=== PATIENT | male | born 1985 | race Caucasian/White ===

== ENCOUNTER 2025-08-15 17:48 | Emergency (ER) | payer OTHER, SELFPAY ==
--- OUTSIDE RECORDS SUMMARY | 2025-05-16 04:30 | XMS_ITS ---
Author Organization [facility] [address] Address [address] [place] [address] Care Team Providers Care First Aid Director Name Role Phone Nayla Calvillo Unavailable [phone] Medications Medication SIG (Take, Route, Frequency, Duration) Notes Start Date End Date Status Ondansetron HCl 4 MG Tablet 1 tablet Ora lly every 8 hours; Duration: 30 days 04/12/2025 Active Encounters Encounter Location Date Provider Diagnosis [facility] [address] [facility] [address] [place] [address] 05/16/2025 Nayla Calvillo Plan Of Treatment No Information History and Physical Notes * HPI (History of Present Illness) Category Sub-Category Detail Notes Category Not es Constitutional Ross is a 40-year-old male with past medical history of hyperemesis cannabinoid syndrome who presents for routine physical exam. Medications, medical history, surgical history, allergies, hospitalizations, and changes in family history since time of last visit reviewed. Labs obtained () reveal. Labs otherwise within normal limits Specialists-- Dentist: Declines Ophthalmology: Declines Other concerns addressed today: Immunizations-- Influenza: Declines COVID: 2021 Tetanus: 04/12/2025 Progress Notes * ROSS BRANDONDOB:[birth year] (40 yo M)Acc No.[id number]:05/16/2025 CPE Patient: Wally ROSS BRIONES Provider: Corey Calvillo PA-C :1985 A ge:40 Y S ex:Male Date:05/16/2025 Address:[address] [place], [place] [id number] Subjective: * Chief Complaints: * HPI: C onstitutional: Ross is a 40-year-old male with past medical history of hyperemesis cannabinoid syndrome who presents for routine physical exam. Medications, medical history, surgical history, allergies, hospitalizations, and changes in family history since time of last visit reviewed. Labs obtained () reveal. Labs otherwise within normal limits Specialists-- Dentist: Declines Ophthalmology: Declines Other concerns addressed today: Immunizations-- Influenza: Declines COVID: 2021 Tetanus: 04/12/2025. * Medications: T akingOndansetron HCl 4 MG Tablet 1 tablet Orally every 8 hours Taking Ondansetron HCl 4 MG Tablet 1 tablet Orally every 8 hours Care Plan Details* * Electronic signature of Gwendolyn Calvillo PA-C on 08/15/2025 at 10:13 PM EST Sign off status: Pending * Provider: Corey Calvillo PA-C Date: 0 05/16/2025 Generated for Yessica fiore/Rey/Lorie on: 1 10/15/2024 10:13 PM EST
--- OUTSIDE RECORDS SUMMARY | 2025-06-07 04:15 | XMS_ITS ---
Author Organization [facility] Address [address] [place] [address] Care Team Providers Care Web Assistant Name Role Phone Karli Nayla Unavailable [phone] Medications Medication SIG (Take, Route, Frequency, Duration) Notes Start Date End Date Status Ondansetron HCl 4 MG Tablet 1 tablet Orally every 8 hours; Duration: 30 days 04/12/2025 Not-Taking Encounters Encounter Location Date Provider Diagnosis [facility] [address] [address] 06/07/2025 Nayla Calvillo Plan Of Treatment No Information History and Physical Notes * HPI (History of Present Illness) Category Sub-Category Detail Notes Category Not es Constitutional Ross is a 40-year-old male with past medical history of tobacco use disorder and hyperemesis cannabinoid syndrome who presents for routine follow-up to review labs. Physical Examination Category Sub-Category Detail Notes Section Note s General: Age appropriate, well appearing, no acute distress, speaking in full sentences without respiratory compromise. Well groomed, well developed. Alert, Interactive. Skin: Warm, dry and intact. No lesions/rashes/erythema. HEENT: Normocephalic/atraumatic. Neck/Thyroid: Supple, with no lymphadenopathy. Full ROM. Lung: Clear to auscultation bilaterally, no wheezes, rales or rhonchi. No barrel chest. Equal chest rise and fall bilaterally. Cardiac: RRR S1 and S2 appreciated. No murmurs/rubs or gallops. Abdomen: Soft, nondistended, nontender to palpation in all 4 quadrants. Extremities: Bilateral lower extremities with no edema or rubor. No evidence of varicose veins. Equal tone bilaterally. Neuro: CN II-XI grossly intact. Steady gait with ambulation observed. Psych: Stable mood and affect Progress Notes * ROSS BRANDON JDOB:[birth year] (40 yo M)Acc No.[id number]:06/07/2025 Progress Notes Patient: ROSS PHILLIPS Provider: Corey Calvillo PA-C :1985 A ge:40 Y S ex:Male Date:06/07/2025 Address:[address] [place], [place] [id number] Subjective: * Chief Complaints: * HPI: C onstitutional: Ross is a 40-year-old male with past medical history of tobacco use disorder and hyperemesis cannabinoid syndrome who presents for routine follow-up to review labs. * ROS: R OS: Constitutional: Patient denies any excessive fatigue with exercise, no weight loss, no fever, no night sweats, no changes in sleep. Eyes: No eye discharge, no itching, no redness, no vision changes. Advised the significance of regular eye exams to screen for glaucoma and other eye problems. Ear nose throat: No ear pain, No sore throat, no postnasal drip, no runny nose, no sneezing, no hearing changes Cardiovascular: No chest pain, no dyspnea on exertion, no PND, no orthopnea, no irregular pulse, no palpitations, no claudication, no diaphoresis, no claudication. Respiratory: No chronic cough, no hemoptysis, no sputum, no wheezing, no SOB, no pleuritic pain. GI: no nausea, no vomiting, No diarrhea, no constipation, no blood in the stools, no pain associated with eating, no indigestion, no difficulty swallowing, no appetite change. Genitourinary: No painful urination, no hesitancy, no blood in the urine, no incontinence, no frequency, no urgency, no abnormal discharge. Musculoskeletal: No back pain, no joint pain, no limitations to walking and running, no joint deformity, no joint stiffness, no muscle weakness Integumentary: No new skin rash. No new changes in skin moles, no pruritis, no color change. Neurological: No history of seizures, no memory loss, no language dysfunction, no inability to concentrate, no localized weakness, no sensation loss, no confusion, no dizziness, no tremor, no numbness, no tingling. Psychiatric: no anxiety, no depression, no suicidal thoughts, feels safe at home. Endocrine: No polyuria, no polyphagia, no polydipsia. No heat/cold intolerance, no excesss thirst. Hematological: No easy bruising or bleeding, no lymph node swelling. * Medications: N ot-TakingOndansetron HCl 4 MG Tablet 1 tablet Orally every 8 hours Not-Taking Ondansetron HCl 4 MG Tablet 1 tablet Orally every 8 hours Objective: * Physical Examination: G eneral: Age appropriate, well appearing, no acute distress, speaking in full sentences without respiratory compromise. Well groomed, well developed. Alert, Interactive. Skin: Warm, dry and intact. No lesions/rashes/erythema. HEENT: Normocephalic/atraumatic. Neck/Thyroid: Supple, with no lymphadenopathy. Full ROM. Lung: Clear to auscultation bilaterally, no wheezes, rales or rhonchi. No barrel chest. Equal chest rise and fall bilaterally. Cardiac: RRR S1 and S2 appreciated. No murmurs/rubs or gallops. Abdomen: Soft, nondistended, nontender to palpation in all 4 quadrants. Extremities: Bilateral lower extremities with no edema or rubor. No evidence of varicose veins. Equal tone bilaterally. Neuro: CN II-XI grossly intact. Steady gait with ambulation observed. Psych: Stable mood and affect. Plan: * Procedure Codes: 9 9199 NO SHOW OFFICE VISIT Billing Information: * Procedure Codes: 59733 NO SHOW OFFICE VISIT. Care Plan Details* * Electronic signature of Gwendolyn Calvillo PA-C on 08/15/2025 at 10:13 PM EST Sign off status: Pending * Provider: Corey Calvillo PA-C Date: 0 06/07/2025 Generated for Yessica fiore/Rey/Joshitting on: 1 10/15/2024 10:13 PM EST
--- OUTSIDE RECORDS SUMMARY | 2025-08-10 20:55 | XMS_ITS | Continuity of Care Document ---
Author Organization [facility] al Address [address] [place] [address]- Care Team Providers Care Hydraulic Chair Assembler Name Role Phone Not on Staff, PCP Primary Care Physician Unavail able Encounter [facility] Date(s): 08/10/25 - 08/10/[address] [address]- Discharge Disposition: A-D/C Home Attending Physician: Tammie Ford DO Admitting Physician: Tammie Ford DO Referring Physician: Not on Staff, Referring MD Encounter Type: Disch ES Allergies, Adverse Reactions, Alerts Substance Criticality Severity Reaction Reaction Severity Status aspirin Active Immunizations Given and Recorded Vaccine Date Status Refusal Reason influenza virus vaccine, inactivated 01/24/16 Give n Medications famotidine 20 mg oral tablet 20 mg, 1, tablet, By Mouth, 2 times a day, # 60 tablet, Refills 0, Tot. Refills 0, Maintenance, 11/21/24 5:38:00 PM EST, Route to Pharmacy Electronically, [facility]/pharmacy #[id number], Partial fill upon patientrequest if the prescription is for a schedule II opioid drug., 173, cm, 11/21/24 16:09:00 EST, Height, 64.7, kg, 11/21/24 12:53:00 EST, Dry Weight Start Date: 11/21/24 Status: Ordered Medication Dispense Status: Completed Quantity: 60.0 Unit: tablet Total Allowed Fills: 1 Fills Dispensed: 0 omeprazole 20 mg oral delayed release tablet 1 tablet = 20 mg, By Mouth, Daily, # 30 tablet, 0 Refills, Maintenance, 01/24/16 2:57:29 PM EDT, EC Tablet, [facility]/pharmacy #[id number] Start Date: 01/24/16 Status: Ordered Medication Dispense Status: Completed Quantity: 30.0 Unit: tablet Total Allowed Fills: 1 Fills Dispensed: 0 Potassium Chloride (Vvk-Spea-Sim M20) 20 mEq oral tablet, extended release 1 tablet = 20 mEq, By Mouth, 2 times a day, # 10 tablet, 0 Refills, Maintenance, 03/14/25 1:08:00 PMEDT, ER Tablet, [facility]/pharmacy #[id number], Partial fill upon patient request if the prescription is for a schedule II opioid drug., 172, cm, 03/14/25 10:16:00 EDT, Height, 63, kg, 03/14/25 10:16:00 EDT, DryWeight Start Date: 03/14/25 Stop Date: 03/19/25 Status: Ordered Medication Dispense Status: Completed Quantity: 10.0 Unit: tablet Total Allowed Fills: 1 Fills Dispensed: 0 prochlorperazine 25 mg rectal suppository 1 supp = 25 mg, Rectally, 2 times a day, PRN for nausea/vomiting, # 12 supp, 0 Refills, Maintenance, 12/01/24 3:46:00 AM EST, Suppository, [id number], Partial fill upon patient request if the prescription is for a schedule II opioid drug., 173, cm, 11/30/24 20:21:00 EST, Height, 62.5, kg, 11/30/24 20:26:00 EST, Dry Weight Start Date: 12/01/24 Status: Ordered Medication Dispense Status: Completed Quantity: 12.0 Unit: supp Total Allowed Fills: 1 Fills Dispensed: 0 promethazine 25 mg rectal suppository 1 supp = 25 mg, Rectally, 2 times a day, # 6 supp, 0 Refills, Maintenance, 08/10/25 8:32:00 PM EST, Suppository, [id number], Partial fill upon patient request if the prescription is for a schedule II opioid drug., 173, cm, 08/10/25 13:55:00 EST, Height, 73, kg, 08/10/25 13:55:00 EST, Dry Weight Start Date: 08/10/25 Stop Date: 08/13/25 Status: Ordered Medication Dispense Status: Completed Quantity: 6.0 Unit: supp Total Allowed Fills: 1 Fills Dispensed: 0 Mental Status Mental Status Assessment Assessment Assessment Component Result Effecti ve Date [place] coma score total 15 08/10/25 Body temperature measurement site Oral 08/10/25 Body weight 73 08/10/25 Heart rate 51 08/10/25 Scale weight (physic al object) Standing scale 08/10/25 Body temperature 98.8 08/10/25 Body height 173 08/10/25 Respiratory rate 18 08/10/25 Dry body weight Measured 73 08/10/25 Oxygen saturation in Arterial blood by Pulse oximetry 98 08/10/25 Systolic blood pressure <content ID='[id number]' >114</content>/<shavon nt ID='[id number]' >60</content> 08/10/25 Gas delivery source Respiratory system Room air 08/10/25 Blood pressure measurement site Arm, left 08/10/25 Mental Status Assessment Assessment Assessment Component Result Effecti ve Date Laz coma score total 15 08/10/25 Vital Signs Most recent to oldest [Reference Range]: 1 2 3 Height 173 cm (08/10/25 8:45 PM) 173 cm (08/10/25 1:50 PM) Weight 73 kg (08/10/25 8:45 PM) 73 kg (08/10/25 1:50 PM) Oxygen Saturation [94-100 %] 98 % (08/10/25 8:45 PM) 98 % (08/10/25 1:50 PM) 100 % (08/10/25 1:49 PM) Pulse Rate [55-90 bpm] 51 bpm *L* (08/10/25 8:45 PM) 51 bpm *L* (08/10/25 1:50 PM) 54 bpm *L* (08/10/25 1:49 PM) Body Mass Index [18.5-24.99 kg/m2] 24.39 kg/m2 (08/10/25 8:45 PM) Blood Pressure [90-138/55-84 mm Hg] 103/46mm Hg (08/10/25 8:45 PM) 114/60mm Hg (08/10/25 1:50 PM) Respiratory Rate [16-30 br/min] 18 br/min (08/10/25 8:45 PM) 18 br/min (08/10/25 1:50 PM) 20 br/min (08/10/25 1:49 PM) Temperature [96.8-100.4 DegF] 99.5 DegF (08/10/25 8:45 PM) 98.8 DegF (08/10/25 1:50 PM) Mode of Delivery (Oxygen) Room air (08/10/25 8:45 PM) Room air (08/10/25 1:50 PM) Blood pressure sites Arm, left (08/10/25 8:45 PM) Arm, left (08/10/25 1:50 PM) Temperature Route Oral (08/10/25 8:45 PM) Oral (08/10/25 1:50 PM) Dry Weight 73 kg (08/10/25 8:45 PM) 73 kg (08/10/25 1:50 PM) Weight Obtained Via Standing scale (08/10/25 1:50 PM) Social History Social History Type Response Smoking Status 5-9 cigarettes (betw een 1/4 to 1/2 pack)/day in last 30 days entered on: 11/21/24 Sex Sex Representation Male (finding) Status N/A Note * Michelle Goel: PERFORM Event Display: Patient Education Leaflets Authored Date: Vomiting (adult) ?? [id number] Vomiting (adult) Vomiting is when stomach contents come out of the mouth. Nausea is the unpleasant feeling of the need to vomit. It may occur with dizziness, discomfort in the stomach (sour stomach), and no desire toeat. Vomiting is a common symptom that may be due to different causes. These include gastroenteritis (stomach flu), food poisoning, and gastritis. Or it may be a side effect of certain medicines, such as opioids. Other more serious causes of vomiting may be hard to diagnose early in the illness. That's why it's important to watch for the warning signs listed below. Some people may also vomit due to strong emotions like fear or from motion sickness. The main danger from repeated vomiting is dehydration. This is because of the loss of water and minerals from the body. When this occurs, your body fluids must be replaced. Other problems that can happen from vomiting include: ??? Electrolyte imbalance ??? Tears in the esophagus ??? Breathing in of stomach contents (aspiration) ??? Weight loss ??? Not getting enough nutrients Home care ??? If symptoms are severe, rest at home for the next 24 hours. ??? Because your symptoms may be from an infection, wash your hands often and well. Use soap and clean, running water or alcohol-based sustainable landscape architect to keep from spreading the infection to others. ??? Wash your hands for at least 20 seconds. Scrub all surfaces of your hands, including between your fingers and under your fingernails each time you wash. Humming the Happy Birthday song twice while you wash is an easy way to make sure you've washed for 20 seconds. ??? Wash your hands after using the toilet, before and after preparing food, and before eating. Also wash them after changing a diaper, cleaning a wound, caring for a sick person, blowing your nose, coughing, or sneezing. You should also wash your hands after touching pet food or treats and touching an animal or animal waste. ??? You may use acetaminophen??or NSAID medicines such as ibuprofen or naproxen to control fever, unless another medicine was prescribed. Talk with your provider before using these medicines if you have chronic liver or kidney disease or ever hada stomach ulcer or digestive bleeding. Never give aspirin to anyone younger than 18 who is ill witha fever. It may cause severe liver damage. Don't use NSAID medicines if you are already taking one for another condition such as arthritis or take aspirin for heart disease or after a stroke. ??? Don't use tobacco or drink alcohol. These may make your symptoms worse. If you have trouble stopping either substance, ask your provider for treatment resources. ??? If medicines for vomiting were prescribed, take as directed. Tell your provider if they don't work within the expected time period. Once vomiting stops, then follow these guidelines: During the first 12 to 24 hours, you can have: ??? Fruit juices, like apple and grape, clear fruit drinks, and electrolyte replacement drinks ??? Beverages such as water, soft drinks without caffeine, mineral water (plain or flavored), and decaffeinated tea and coffee ??? Clear broth and bouillon ??? Desserts like plain gelatin, ice pops, and fruit juice bars During the next 24 hours, you may add the following to the above: ??? Hot cereal, plain toast, bread, rolls, and crackers ??? Plain noodles, rice, mashed potatoes, and chicken noodle or rice soup ??? Unsweetened canned fruit such as applesauce or bananas (no pineapple or citrus) ??? Yogurt (6 to 8 ounces) ??? Limited amounts of caffeine and chocolate ??? No spices or seasonings except salt During the next 24 hours, you can gradually go back to your normal diet, as you feel better and your symptoms lessen. ?? Follow-up care Follow up with your healthcare provider as advised. ?? When to seek medical advice Call your healthcare provider right away if any of these occur: ??? Constant pain in the lower right side of your belly or increasing general belly pain ??? Continued vomiting (unable to keep liquidsdown) for 24 hours ??? Vomiting blood or what looks like coffee grounds ??? Swollen belly ??? Frequent diarrhea (more than 5 times a day), or blood (red or black color) or mucus in diarrhea ??? Peeing less than usual or extreme thirst ??? Weakness, dizziness, or fainting ??? Unusually drowsy or confused ??? Fever of 100.4??F (38??C) or higher, or as directed by your provider ??? Yellow color of the eyes or skin ??? Other symptoms that get worse or new symptoms ?? Last Reviewed Date: 2024 00:00:00 ?? 8018-0707 [employer]. All rights reserved. This information is not intended as a substitute for professional medical care. Always follow your healthcare professional's instructions. ?? * Michelle Goel: PERFORM Event Display: Patient Education Leaflets Authored Date: [id number] Marijuana Use Disorder ?? [id number] Marijuana Use Disorder Marijuana, or cannabis, is the third most commonly used psychoactive substance in the world. Its use is surpassed only by alcohol and tobacco (nicotine). Recently, it's increasingly legal for recreational and medicinal use in many states. It's called by various names such as pot, weed, blunts, grass, reefer, ganja, hash, or hashish. It's usually smoked, but it can be mixed with foods or brewed asa tea. Recently a practice known as dabbing or smoking wax has become popular. This means smoking highly concentrated extracts of the marijuana plant. The result is more side effects. Sometimes, marijuana can be illegally sold with PCP (haresh dust) or amphetamine mixed in it. These illegal drugs can cause other harmful side effects. If you're using marijuana with other illegal or legal drugs,the type and severity of side effects will vary. Marijuana (cannabis) use is considered a disorder when the person loses control over its use. The person continues to use it even when it causes serious physical, emotional, thinking, and social problems. It may be identified as mild, moderate, or severe, depending on the number of symptoms present. Marijuana can cause: ??? Changes in mood, such as feeling stimulated, happy, drowsy, depressed, or paranoid. ??? Visions(hallucinations). ??? Increased heart rate and blood pressure. ??? Red eyes. ??? Increased appetite. ??? Changes in awareness of time, trouble concentrating, or memory problems. ??? Lung damage. Thisis similar to cigarettes with chronic cough, wheezing, frequent colds, and bronchitis. ??? Rarely, collapse of a lung. ??? Decreased sperm count. ??? Dizziness, vertigo, and possibly slurred speech. ??? Vomiting. Even though marijuana is often used to treat nausea and vomiting, some long-term dailyusers have the opposite effect. They can't stop vomiting for long periods of time. You can become psychologically dependent on marijuana. That means the craving to use the drug is emotional or psychological rather than from physical withdrawal. Is marijuana running your life? Signs of marijuana use disorder include: ??? Relying on marijuana to feel good, forget problems, deal with stress, or relax. ??? Wanting to be alone most of the time or only with others who use drugs. ??? Losing interest in things that used to be important. ??? Changes in school or job performance or attendance. ??? Spending a lot of time thinking about how to get marijuana. ??? Stealing or selling your things so you can buy marijuana. ??? Unable to stop using even though you may want to quit. ??? Increasing anxiety, anger,??or depression. ??? Sleeping too much, or changes in eating habits (leading to weight loss or gain). ??? Needing to use more to get the same effect. ?? Home care These suggestions can help you manage marijuana use disorder: ??? When you become addicted to any drug, quitting is hard to do. Most people find they can't quit without help. So don???t try to do this alone. Talk to someone you trust who can support you. Seek professional help. ??? Stay away from people and places where drugs are used. That only increases the temptation to use. ?? Follow-up care Follow up with your health care provider as advised. For more information or a referral to a treatment center in your area: ??? Substance Abuse and Mental Health Services Administration (SAMHSA) Treatment Locations at https://www.[facility].gov/find-treatment ??? National [place] on Alcoholism and Drug Dependence at http://ncaddms.org/ or call 172-026-1371 ??? Marijuana Anonymous at [employer].org or call 397-748-2542 ?? When to get medical care ??Contact your health care provider right away if: ??? You believe you're addicted to marijuana andwant to stop using it. ??? You feel extreme depression, fear, anxiety, or anger toward yourself orothers. ??? You feel out of control. ??? You feel that you may try to harm yourself or another. ???Call 911 if you have chest pain or shortness of breath. ?? Last Reviewed Date: 2024 00:00:00 ?? 7158-1930 [employer]. All rights reserved. This information is not intended as a substitute for professional medical care. Always follow your healthcare professional's instructions. ?? Patient Care team information Care Team Personnel Name: Not on Staff, PCP Position: S Physician (General Medicine) Member Role: PCP Care Team Related Persons Name: TETO GOTTLIEB Insurance Providers Guarantor name: [facility] [employer] [facility] Information #: 1 [facility] Payer Identifier: BAKARI Member Number: [id number] Group Number: [id number] Subscriber Identifier: [id number] Relationship to Subscriber: self Coverage Type: Commercial Managed Care - PPO Coverage Verification Date: NA Telecom: NA Address: NA
--- OUTSIDE RECORDS SUMMARY | 2025-08-12 02:47 | XMS_ITS | Continuity of Care Document ---
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 Name Role Phone Not on Staff, PCP Primary Care Physician Unavail able Encounter [facility] Date(s): 08/11/25 - 08/12/[address] [address]- Discharge Disposition: A-D/C Home Attending Physician: Jono Torres MD Admitting Physician: Jono Torres MD Referring Physician: Not on Staff, Referring MD Encounter Type: Disch ES Allergies, Adverse Reactions, Alerts Substance Criticality Severity Reaction Reaction Severity Status aspirin Active Immunizations Given and Recorded Vaccine Date Status Refusal Reason influenza virus vaccine, inactivated 01/24/16 Give n Medications Carafate 1 gm oral tablet 1 Gm, 1, tablet, By Mouth, 2 times a day, # 30 tablet, Refills 0, Tot. Refills 0, Maintenance, 08/12/25 2:09:00 AM EST, Route to Pharmacy Electronically, [facility]/pharmacy #[id number], Partial fill upon patient request if the prescription is for a schedule II opioid drug., 173, cm, 08/11/25 19:14:00 EST, Height, 66.5, kg, 08/11/25 19:14:00 EST, Dry Weight Start Date: 08/12/25 Status: Ordered Medication Dispense Status: Completed Quantity: 30.0 Unit: tablet Total Allowed Fills: 1 Fills Dispensed: 0 famotidine 20 mg oral tablet 20 mg, 1, tablet, By Mouth, 2 times a day, # 60 tablet, Refills 0, Tot. Refills 0, Maintenance, 11/21/24 5:38:00 PM EST, Route to Pharmacy Electronically, [facility]/pharmacy #[id number], Partial fill upon patientrequest if the prescription is for a schedule II opioid drug., 173, cm, 11/21/24 16:09:00 EST, Height, 64.7, kg, 11/21/24 12:53:00 EST, Dry Weight Start Date: 11/21/24 Status: Ordered Medication Dispense Status: Completed Quantity: 60.0 Unit: tablet Total Allowed Fills: 1 Fills Dispensed: 0 metoclopramide 5 mg oral tablet 1 tablet = 5 mg, By Mouth, 4 times a day, PRN Nausea, # 60 tablet, 0 Refills, Acute 09/12/25 2:01:00AM EST, 08/12/25 2:01:00 AM EST, Tablet, [facility]/pharmacy #[id number], Partial fill upon patient request if the prescription is for a schedule II opioid drug., 173, cm, 08/11/25 19:14:00 EST, Height, 66.5, kg, 08/11/25 19:14:00 EST, Dry Weight Start Date: 08/12/25 Stop Date: 09/12/25 Status: Ordered Medication Dispense Status: Completed Quantity: 60.0 Unit: tablet Total Allowed Fills: 1 Fills Dispensed: 0 omeprazole 20 mg oral delayed release tablet 1 tablet = 20 mg, By Mouth, Daily, # 30 tablet, 0 Refills, Maintenance, 01/24/16 2:57:29 PM EDT, EC Tablet, [facility]/pharmacy #[id number] Start Date: 01/24/16 Status: Ordered Medication Dispense Status: Completed Quantity: 30.0 Unit: tablet Total Allowed Fills: 1 Fills Dispensed: 0 pantoprazole 20 mg oral delayed release tablet 1 tablet = 20 mg, By Mouth, Daily, # 15 tablet, 0 Refills, Maintenance, 08/12/25 2:10:00 AM EST, CR Tablet, 173, cm, 08/11/25 19:14:00 EST, Height, 66.5, kg, 08/11/25 19:14:00 EST, Dry Weight Start Date: 08/12/25 Status: Ordered Medication Dispense Status: Completed Quantity: 15.0 Unit: tablet Total Allowed Fills: 1 Fills Dispensed: 0 Mental Status Mental Status Assessment Assessment Assessment Component Result Effecti ve Date Laz coma score total 15 08/11/25 Mental Status Assessment Assessment Assessment Component Result Effecti ve Date Laz coma score total 15 08/11/25 Body temperature 98.7 08/11/25 Blood pressure measurement site Arm, right 08/11/25 Heart rate 60 08/11/25 Body weight 66.5 08/11/25 Body temperature measurement site Temporal 08/11/25 Body height 173 08/11/25 Systolic blood pressure <content ID='[id number]' >107</content>/<shavon nt ID='[id number]' >92</content> 08/11/25 Oxygen saturation in Arterial blood by Pulse oximetry 98 08/11/25 Dry body weight Measured 66.5 08/11/25 Respiratory rate 18 08/11/25 Scale weight (physic al object) Standing scale 08/11/25 Vital Signs Most recent to oldest [Reference Range]: 1 2 3 Height 173 cm (08/11/25 7:03 PM) Weight 66.5 kg (08/11/25 7:03 PM) Oxygen Saturation [94-100 %] 100 % (08/12/25 2:00 AM) 99 % (08/12/25 1:00 AM) 98 % (08/11/25 7:03 PM) Pulse Rate [55-90 bpm] 53 bpm *L* (08/12/25 2:00 AM) 52 bpm *L* (08/12/25 1:00 AM) 60 bpm (08/11/25 7:03 PM) Blood Pressure [90-138/55-84 mm Hg] 102/62mm Hg (08/12/25 2:00 AM) 106/62mm Hg (08/12/25 1:00 AM) 107/92mm Hg (08/11/25 7:03 PM) Respiratory Rate [16-30 br/min] 18 br/min (08/11/25 7:03 PM) Temperature [96.8-100.4 DegF] 98.7 DegF (08/11/25 7:03 PM) Mode of Delivery (Oxygen) Room air (08/12/25 2:00 AM) Room air (08/12/25 1:00 AM) Room air (08/11/25 7:02 PM) Blood pressure sites Arm, right (08/12/25 2:00 AM) Arm, right (08/12/25 1:00 AM) Arm, right (08/11/25 7:03 PM) Temperature Route Temporal (08/11/25 7:03 PM) Dry Weight 66.5 kg (08/11/25 7:03 PM) Weight Obtained Via Standing scale (08/11/25 7:03 PM) Social History Social History Type Response Smoking Status 5-9 cigarettes (betw een 1/4 to 1/2 pack)/day in last 30 days entered on: 11/21/24 Sex Sex Representation Male (finding) Status N/A Note * Melissa HO, Jono Abdul: PERFORM Event Display: Patient Education Leaflets Authored Date: [id number] Multiple Documents ?? [id number] Vomiting (adult) Vomiting is when stomach contents [...] soap and clean, running water or alcohol-based electric power machine operator to keep from spreading the infection to [...] ?? Last Reviewed Date: 2024 00:00:00 ?? [id number] [employer]. All rights reserved. This information is not intended as a substitute for professional medical care. Always follow your healthcare professional's instructions. ?? * Melissa HO, Jono Abdul: PERFORM Event Display: Patient Education Leaflets Authored Date: [id number] Multiple Documents ?? [id number] Food Poisoning or Viral Gastroenteritis (Adult) You have a stomach illness that is likely either food poisoning or viral gastroenteritis. Food poisoning is an illness that is passed along in food and affects the stomach and intestinal tract. It usually occurs from 1 to 24 hours after eating food that has spoiled. When it happens withina few hours of eating, it's often caused by toxins from bacteria in food that has not been cooked or refrigerated correctly. Never eat food that has been sitting out for more than 2 hours, or 1 hour if the temperature is above 90??F (32??C). Viral gastroenteritis is an??illness from a virus that also affects the stomach and intestinal tract. Many people call it the ???stomach flu,?? but it has nothing to do with influenza. In fact, it can happen from food poisoning, but it can also happen when germs??are passed from mubftn-od-muknvg or contaminated surface (toothbrush, cutting board, toilet) to a person. Either illness can cause symptoms such as: ??? Belly (abdominal) pain and cramping. ??? Nausea. ??? Vomiting. ??? Diarrhea. ??? Fever and chills. ??? Loss of bowel control. The symptoms of food poisoning usually last 1 to 2 days. The symptoms of viral gastroenteritis can sometimes last up to 7 days but usually end sooner. Antibiotics are not effective for viral gastroenteritis. But they may be prescribed for food poisoning that was caused by bacteria or parasites. Other causes of gastroenteritis include bacteria and parasites which are not discussed here. Home care Follow all instructions given by your health care provider. Rest at home for the next 24 hours, or until you feel better. Don't have any caffeine, tobacco, or alcohol. These can make diarrhea, cramping, and pain worse. If taking medicines: ??? Llej-uvi-mzgauzk diarrhea or nausea medicines are generally okay unless you have bleeding, fever, or severe abdominal pain. ??? You may use acetaminophen or nonsteroidal anti-inflammatory drugs (NSAID), such as ibuprofen or naproxen to reduce pain and fever. Don???t use these if you have chronic liver or kidney disease. Don't use NSAIDs on an empty stomach or if you ever had a stomach ulcer or gastrointestinal bleeding. Talk with your provider first. Don't use NSAIDs if you are already taking them for another condition (such as arthritis) or are on daily aspirin therapy (such as for heartdisease or after a stroke). To prevent the spread of illness: ??? Remember that washing with soap and clean, running water is the best way to prevent the spread of infection. Wash your hands before and after caring for a sick person. Dry your hands with a single-use disposable towel. ??? Use a separate bathroom or clean the toilet after each use. ??? Wash your hands or use alcohol-based hand electric power machine operator before eating. ??? Wash your hands or use alcohol- based hand electric power machine operator before and after preparing food. Keep in mind that people with diarrhea or vomiting should not prepare food for others. ??? Wash your hands or use alcohol-based hand electric power machine operator after using cutting boards, counter- tops, and knives (and other utensils) that have been in contact with raw foods. ??? Wash and then peel fruits and vegetables. ??? Keep uncooked meats away from cooked and ckkkm-nv-uuu foods. ??? Use a food thermometer when cooking. Cook poultry to at least 165??F (74??C). Cook ground meat (beef, veal, pork, and phan) to at least 160??F (71??C). Cook fresh beef, veal, phan, and pork to at least 145??F (63??C). ??? Don???t eat raw or undercooked eggs (poached or ct side up), poultry, meat or unpasteurized milk and juices. Food and drinks The main goal while treating vomiting or diarrhea is to prevent dehydration. This is done by takingsmall amounts of liquids often. ??? Keep in mind that liquids are more important than food right now. ??? If you are nauseated, youcan sip liquids often rather than drinking a large amount at once. ??? Don???t force yourself to eat, especially if you are??having cramping, vomiting, or diarrhea. Small, frequent meals are better tolerated than a few large meals. ??? If you eat, stay away from fatty, greasy, spicy, or fried foods. ??? Don???t eat dairy foods or drink milk if you have diarrhea.??These can make??diarrhea worse. The first 24 hours you can try: ??? Oral rehydration solutions. These are available at grocery stores and pharmacies. Sports drinksare not a good choice if you are very dehydrated. They have too much sugar and not enough electrolytes. ??? Soft drinks without caffeine. ??? Leslie garcia. ??? Water (plain or flavored). ??? Decaf tea or coffee. ??? Clear broth, consomm??, or bouillon. ??? Gelatin, ice pops, or frozen fruit juice bars. ??The second 24 hours, if you are feeling better, you can add: ??? Hot cereal, plain toast, bread, rolls, or crackers. ??? Plain noodles, rice, mashed potatoes, chicken noodle soup, or rice soup. ??? Unsweetened canned fruit (no pineapple). ??? Bananas. As you recover: ??? Limit fat intake to less than 15 grams per day. Don???t eat margarine, butter, oils, mayonnaise, sauces, gravies, fried foods, peanut butter, meat, poultry, or fish. ??? Broaden your diet when you feel ready. In general, a low-fat diet may be better tolerated. This includes leanmeat, poultry, and fish. ??? Limit fiber. Initially limit raw or lightly cooked vegetables, fresh fruits except bananas, or bran cereals. Add them back when you feel ready. ??? Limit caffeine and chocolate. ??? Limit dairy. If you tolerated dairy products before your diarrhea, add them back when you feel ready. Some people are lactose intolerant for a while after diarrhea. ??? Choose bland foods.They may be easier to tolerate than highly spiced foods. ??? Resume a normal diet over time, as youfeel better and your symptoms improve. ??? If the symptoms come back, go back to a simple diet or clear liquids. ?? Follow-up care Follow up with your health care provider, or as advised. If a stool sample was taken or cultures were done, call the provider for the results as instructed. ?? Call 911 Call 911 if you have: ??? Trouble breathing. ??? Confusion. ??? Extreme drowsiness or trouble walking. ??? Loss of consciousness. ??? A rapid heart rate. ??? Chest pain. ??? A stiff neck. ??? A seizure. ?? When to call your doctor Contact your health care provider right away if: ??? You have belly pain that lasts or gets worse. ??? You have constant lower right belly pain. ??? You have continued vomiting and inability to keep liquids down. ??? You have diarrhea more than 5 times a day. ??? You have blood in your vomit or stool. ??? You have dark urine or no urine for 8 hours, dry mouth and tongue, tiredness, weakness, or dizziness. ??? You have a new rash. ??? You don???t get better in 2 to 3 days. ??? You have a fever of 100.4??F (38??C) or higher, or as??advised by your provider. ??? You have new symptoms of arthritis. ?? Last Reviewed Date: 2024 00:00:00 ?? [id number] [employer]. All rights reserved. This information is not intended as a substitute for professional medical care. Always follow your healthcare professional's instructions. ?? Patient Care team information Care Team Personnel Name: Not on Staff, PCP Position: [facility] Physician (General Medicine) Member Role: PCP Care Team Related Persons Name: TETO GOTTLIEB Insurance Providers Guarantor name: SHINTO [facility] Information #: 1 Payer: [facility] Payer Identifier: BAKARI Member Number: [id number] Group Number: [id number] Subscriber Identifier: [id number] Relationship to Subscriber: self Coverage Type: Commercial Managed Care - PPO Coverage Verification Date: Telecom: NA Address:
--- NOTE | 2025-08-15 17:52 | ED.GENADULT ---
HPI - General Adult General Chief complaint: Abdominal Pain Stated complaint: Sciatica Pain Time Seen by Provider: 08/15/25 22:36 Source: patient Limitations: no limitations History of Present Illness ED Provider: Tamra Deras PA-C HPI narrative: 40-year-old male with a history of kidney stones presents with nausea vomiting x6 days. Associated dark urine, right mid flank pain that radiates to the groin at times, since the patient has a arrived to the emergency department his discomfort has subsided. Patient developed diarrhea yesterday, it is also improving. Denies dysuria, fever, recent travel, use of antibiotics, no hospitalizations, no sick contacts with similar symptoms. Related Data Previous Rx's ?Medication ?Instructions ?Recorded ketorolac 10 mg tablet 10 mg PO Q6H PRN pain #20 tabs 08/16/25 ondansetron 4 mg disintegrating 4 mg PO Q8H PRN nausea and 08/16/25 tablet vomiting #10 tabs tamsulosin 0.4 mg capsule (Flomax) 0.4 mg PO DAILY #7 caps 08/16/25 Allergies Allergy/AdvReac Type Severity Reaction Status Date / Time aspirin Allergy Palpitation Verified 08/15/25 17:58 s Review of Systems Review of Systems: Yes all other systems are reviewed and are negative Constitutional: Constitutional: Denies fatigue and Denies fever(s) Cardiovascular: Cardiovascular: Denies chest pain and Denies dyspnea Respiratory: Respiratory: Denies dyspnea Gastrointestinal: Gastrointestinal: Reports abdominal pain, Reports diarrhea, Reports nausea and Reports vomiting Genitourinary: Genitourinary: Denies hematuria, Denies dysuria and Reports flank pain Musculoskeletal: Musculoskeletal: Denies back pain Endocrine: Endocrine: Denies fatigue [facility] Past Medical History Attestation statement: The following information was validated with the patient. Social History Social History Alcohol intake: current Alcohol intake frequency: holidays/special occasions only Smoked in Last 30 Days: No Use of substances other than those prescribed or required for medical reasons: Yes Substance Use Type: Marijuana Substance Use Frequency: Chronic Longstanding Last Used Substance: Weeks (ago) Any prior treatment program specific to substance use: No Advance Directives: No Advance Directives Information Provided: Yes Do you have a plan to hurt others: No Plan Physical Exam ED Vital Signs: Vital Signs - 24 hr 08/15/25 17:53 08/15/25 22:12 08/16/25 00:23 Temperature 98.4 F 98.8 F 98.8 F Pulse Rate 64 61 61 Respiratory Rate 18 12 12 Blood Pressure 123/70 116/82 116/82 Pulse Oximetry 99 96 96 Oxygen Delivery Method Room Air Room Air Room Air BMI result Body Mass Index 21.4 Const Other: Alert well-appearing Orientation/consciousness: patient oriented x3 Resp Effort & Inspection: normal respiratory effort Cardio Other: Normal peripheral perfusion General: Yes no CVA tenderness Back/Spine/Pelvis Back: no CVA tenderness Skin Other: Warm dry no rash Neuro General: patient oriented x3, gait normal, no focal motor deficits and CN's II-XI intact bilaterally Psych Other: Cooperative Course Course Course Narrative: This is a rapid medical exam performed by Payal Baca NP: Additional HPI, ROS, PE not included below will be deferred to primary provider. Patient is a 40y/o M presenting with complaint of nausea and vomiting for the past week. Initially had diarrhea then developed vomiting. Has last 10-11lbs over the past week. Seen at [facility] twice recently for same, dx with cyclical vomiting syndrome. States he hasn't been able to tolerate any PO. Plan: labs, UA Reevaluation(s) Reevaluation #1: The patient's symptoms have completely resolved, he is no longer nauseous he has no pain, he has no diarrhea, he is eating drinking, he likely passed a kidney stone, I think the diarrhea is incidental. We will send with home care instructions Medications Administered Discontinued Medications Generic Name Dose Route Start Last Admin Trade Name Freq PRN Reason Stop Dose Admin Sodium Chloride 1,000 mls @ 999 mls/hr 08/15/25 23:15 08/16/25 00:19 Ns IV 08/16/25 00:15 Infused .Q1H1M KEMAL Infusion Ondansetron HCl 4 mg 08/15/25 23:12 08/15/25 23:20 Ondansetron Hcl 4 Mg/2 Ml Vial IVPUSH 08/15/25 23:13 4 mg ONCE ONE Administration Potassium Chloride 40 meq 08/15/25 23:53 08/15/25 23:58 Potassium Chloride Er 20 Meq Tab.Er.Prt PO 08/15/25 23:54 40 meq ONCE ONE Administration Medical Decision Making Medical Decision Making MDM Narrative: 40-year-old male with a history of kidney stones presents with nausea vomiting x6 days. Associated dark urine, right mid flank pain that radiates to the groin at times, since the patient has a arrived to the emergency department his discomfort has subsided. Patient developed diarrhea yesterday, it is also improving. Denies dysuria, fever, recent travel, use of antibiotics, no hospitalizations, no sick contacts with similar symptoms. Problem: Kidney stones History: Per patient I have considered the following differential diagnoses: Renal colic, pyelonephritis, UTI, urethritis, viral gastroenteritis, traveler's diarrhea, C diff, Plan: Screening labs including a viral panel were obtained from triage, the patient's symptoms have completely resolved. I do feel he likely passed a kidney stone given distribution of discomfort in nature of symptoms, I think the brief diarrhea is incidental. To note, he has no risk factors for traveler's diarrhea or C diff, he also has no sick contacts to suggest viral gastroenteritis. The patient has received IV fluids, his potassium was subtly low, he is declining IV supplementation, he is eating and drinking, we can give him oral replenishment of the potassium. Sending with home care instructions. No indication for imaging I have independently reviewed the following tests: Labs: No leukocytosis, not anemic, potassium 3.1, no additional electrolyte abnormalities, viral panel negative, passing hematuria urine not infected Differential Diagnosis Differential Diagnoses: The differential diagnosis associated with the presentation includes See [facility] Admission/Observation Consideration of admission/observation: Escalation of care including admission/observation considered Not applicable Lab Data [facility] Lab Attestation statement: I reviewed the patient's lab results. 08/15/25 18:15 08/15/25 18:15 Labs: Lab Results 08/15/25 08/15/25 08/15/25 Range/Units 18:12 18:15 22:01 WBC 10.0 (4.8-10.8) X10*3/uL RBC 5.10 (4.60-5.80) X10*6/uL Hgb 16.1 (14.0-18.0) g/dl Hct 43.9 (42.0-52.0) % MCV 86.1 (80.0-98.0) fL MCH 31.6 (27.0-33.0) pg MCHC 36.7 H (31.0-36.0) g/dl RDW 11.9 (11.0-16.0) % Plt Count 269 (160-400) X10*3/uL MPV 9.6 (9.4-12.4) fL Immature Gran % (Auto) 1.1 H (0.0-0.4) % Neut % (Auto) 51.4 (45-73) % Lymph % (Auto) 37.3 (20-40) % [place] % (Auto) 9.6 (2-11) % Eos % (Auto) 0.1 (0-4) % Baso % (Auto) 0.5 (0-2) % Lymph # (Auto) 3.7 (1.2-4.9) X10*3/uL [place] # (Auto) 1.0 (0.1-1.2) X10*3/uL Eos # (Auto) 0.0 (0.0-0.4) X10*3/uL Baso # (Auto) 0.1 (0.0-0.2) X10*3/uL Abs Immat Gran (auto) 0.11 H (0.00-0.03) X10*3/uL Absolute Neuts (auto) 5.2 (2.0-8.3) x10*3/uL Absolute Nucleated RBC 0.000 (0.0-0.012) X10*3/uL Nucleated RBC % (auto) 0.0 (0.0-0.2) /100WBC Sodium 137 (135-145) mmol/L Potassium 3.1 L (3.3-5.1) mmol/L Chloride 99 (96-108) mmol/L Carbon Dioxide 29 (22-29) mmol/L Anion Gap 12 (12-20) BUN 13 (9-16) mg/dL Creatinine 1.00 (0.5-1.4) mg/dL Estim Creat Clear Calc 86.7 Estimated GFR > 60 Random Glucose 109 (60-115) mg/dL Calcium 9.5 (8.4-10.2) mg/dL Magnesium 2.3 (1.6-2.6) mg/dL Total Bilirubin 1.8 H (0.0-1.0) mg/dL AST 15 (5-37) U/L ALT 21 (0-40) U/L Alkaline Phosphatase 67 (39-117) U/L Total Protein 7.4 (6.5-8.0) g/dL Albumin 4.9 (3.5-5.0) g/dL Urine Color Dark Yellow Urine Appearance Cloudy Urine pH 5.5 (5.0-9.0) Ur Specific [place] >= 1.030 H (1.005-1.025) Urine Protein 30 (1+) H (Neg-Trace) mg/dL Urine Glucose (UA) Negative (Negative) mg/dL Urine Ketones Trace (Negative) mg/dL Urine Blood Small (1+) H (Negative) Urine Nitrite Negative (Negative) Ur Leukocyte Esterase Trace H (Negative) Urine RBC 11-20 H (0-2) /HPF Urine WBC 6-10 H (0-5) /HPF Ur Squamous Epith Cells 3-5 (0-2) /HPF Urine Bacteria None Seen (None Seen) Hyaline Casts 3-5 (0-2) /LPF Influenza Type A (PCR) NEGATIVE (Negative) Influenza Type B (PCR) NEGATIVE (Negative) RSV RNA Qual (PCR) NEGATIVE (Negative) SARS-CoV-2 RNA (RT-PCR) NEGATIVE (Negative) Critical Care Time Critical Care Time Critical Care Time: Yes Total Critical Care Time: 35 Attestation: Valentin Deras PA-C have personally performed 35 minutes of critical care time not including lines and procedures; hypokalemia Discharge Plan Discharge Clinical Impression: Acute right flank pain, Hematuria, Nausea & vomiting, Acute hypokalemia Patient Disposition: Home, Self-Care Instructions: Potassium Content of Foods List (ED), Hypokalemia (ED), Acute Nausea and Vomiting (ED), Hematuria (ED) Additional Instructions: You may have passed a kidney stone today while you were waiting for your assessment. You are passing blood in your urine. This would account for your pain and nausea/ vomiting. You developed low potassium secondary to vomiting, you were given a supplement here in the emergency room. The remainder of your screening labs were overall normal. See home care instructions. Take the Flomax as directed, this will help to induce urine flow Use the ketorolac as needed for pain, take it with food Uses Zofran as needed for nausea Follow up with your primary care provider as needed. Prescriptions: New ondansetron 4 mg tablet,disintegrating 4 mg PO Q8H PRN (Reason: nausea and vomiting) Qty: 10 0RF ketorolac 10 mg tablet 10 mg PO Q6H PRN (Reason: pain) Qty: 20 0RF Rx Instructions: maximum total duration of 5 days from all oral, intranasal, or parenteral formulations. The patient received IV Toradol here in the emergency room tamsulosin [Flomax] 0.4 mg capsule 0.4 mg PO DAILY Qty: 7 0RF Stand Alone Forms: Work/School Release Interventions: ED Discharge Assessment Last Done: 08/16/25 00:23 Discharge Date/Time: 08/16/25 00:29 Print Language: Frisian
[2025-08-15 17:53] VITALS: BP 123/70; PULSE 64; RESP 18; TEMP 36.9; O2SAT 99; BMI 21.4
[2025-08-15 18:20] LABS: MANUAL DIFF FLAG NO
[2025-08-15 18:36] LABS: Alanine Aminotransferase 21 U/L (0-40); Albumin Level 4.9 g/dL (3.5-5.0); Alkaline Phosphatase 67 U/L (39-117); Anion Gap 12 (12-20); Aspartate Amino Transferase 15 U/L (5-37); Blood Urea Nitrogen 13 mg/dL (9-16); Calcium 9.5 mg/dL (8.4-10.2); Carbon Dioxide 29 mmol/L (22-29); Chloride 99 mmol/L (96-108); Creatinine Clr Calc Pharmacy 86.7; Estimated Glomerular Filt Rate > 60; Magnesium 2.3 mg/dL (1.6-2.6); Potassium 3.1 mmol/L (3.3-5.1); Sodium 137 mmol/L (135-145); Total Protein 7.4 g/dL (6.5-8.0)
[2025-08-15 18:38] LABS: Hematocrit 43.9 % (42.0-52.0); Hemoglobin 16.1 g/dl (14.0-18.0); Imm Gran Abs Auto 0.11 X10*3/uL (0.00-0.03); Imm Gran Pct Auto 1.1 % (0.0-0.4); Lymphocytes Absolute Auto 3.7 X10*3/uL (1.2-4.9); Mean Corpuscular HGB Conc 36.7 g/dl (31.0-36.0); Mean Corpuscular Hemoglobin 31.6 pg (27.0-33.0); Mean Corpuscular Volume 86.1 fL (80.0-98.0); NRBC Abs Auto 0.000 X10*3/uL (0.0-0.012); NRBC Pct Auto 0.0 /100WBC (0.0-0.2); Platelet Count 269 X10*3/uL (160-400); Red Blood Count 5.10 X10*6/uL (4.60-5.80); White Blood Count 10.0 X10*3/uL (4.8-10.8)
[2025-08-15 19:00] LABS: Resp Syncy Virus RNA Qual PCR NEGATIVE (Negative); SARS COV2 PCR INHOUSE NEGATIVE (Negative)
[2025-08-15 22:08] LABS: Appearance Urine Cloudy; Glucose Urine UA Negative (Negative); PH 5.5 (5.0-9.0); Specific Gravity - Urine >= 1.030 (1.005-1.025); UMIC TRIGGER UACC YES
[2025-08-15 22:12] VITALS: BP 116/82; PULSE 61; RESP 12; TEMP 37.1; O2SAT 96
--- OUTSIDE RECORDS SUMMARY | 2025-08-15 22:13 | XMS_ITS | Patient Health Record ---
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 Name Role Phone Nayla Calvillo Unavailable [phone] Allergies Allergen (clinical drug ingredient) Drug/Non Drug Allergy documented on EMR Reaction Allergy Type Onset Date Status aspirin Aspirin palpitations Drug Allergy Acti ve Reason For Referral No Information Medications Medication SIG (Take, Route, Frequency, Duration) Notes Start Date End Date Status Ondansetron HCl 4 MG Tablet 1 tablet Orally every 8 hours; Duration: 30 days 04/12/2025 Not-Taking Immunizations Vaccine Route Administration Date Status Comme nts Tdap IM Intramuscular 04/12/2025 Administered Social History Section Notes: tobacco: started 1999, 1 pack every 2 days. 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 Problems Problem Type SNOMED Code ICD Code Onset Dates Problem Status W/U Status Risk Notes Problem Vitamin B>12< deficiency anaemia (40213029) Anemia due to vitamin B12 deficiency, unspecified B12 deficiency type (D51.9) Active confirmed Problem Avitaminosis D (20512137) Avitaminosis D (E55.9) Active confirmed Problem Tobacco use (409701466) Tobacco use disorder (F17.200) Active confirmed Problem Cannabis hyperemesis syndrome concurrent with and due to cannabis abuse (F12.188) Active confirmed Problem Cyclical vomiting with nausea (R11.15) Active confirmed Vital Signs Heart Rate 71 /min 05/23/2025 Oximetry 99 % 05/23/2025 Blood pressure diastolic 88 mm Hg 05/23/2025 Height 69 in 05/23/2025 Blood pressure systolic 116 mm Hg 05/23/2025 Weight 151.3 lbs 05/23/2025 BMI 22.34 kg/m2 05/23/2025 Encounters Encounter Location Date Provider Diagnosis [facility] [address] [address] 06/07/2025 Nayla Normoyle [facility] [address] [address] 04/12/2025 Nayla Normoyle Cannabis hyperemesis syndrome concurrent with and due to cannabis abuse F12.188 ; Tobacco use disorder F17.200 ; Cyclical vomiting with nausea R11.15 ; Encounter for immunization Z23 and Encounter for examination of blood pressure without abnormal findings Z01.30 [facility] [address] [address] 05/23/2025 Nayla Normoyle Annual physical exam Z00.00 ; Cannabis hyperemesis syndrome concurrent with and due to cannabis abuse F12.188 ; Tobacco use disorder F17.200 and Encounter for examination of blood pressure without abnormal findings Z01.30 [facility] [address] [address] 06/08/2025 Nayla Normoyle Assessments Encounter Date Diagnosis (ICD Code) Assessment Notes Treatment Notes Treatment Clinical Notes Section Notes 04/12/2025 Tobacco use disorder (ICD-10 - F17.200) Patient is welcomed to the practice. He has never had a PCP. Medications, medical history, allergies, surgeries, hospitalizations, family history, and social history were reviewed. Problem list updated. Cardiopulmonary and abdominal exam unremarkable. Patient will follow-up in office. All patient questions answered at this time. #Health maintenance: Patient has never had a PCP. He declines dentist and eye doctor at this time. He declines flu shot, has received COVID vaccines in 2019, Tdap given in office today. Physical exam scheduled today, routine labs ordered to be reviewed. #Hyperemesis cannabinoid syndrome: Patient reports cyclic nausea, vomiting, and abdominal pain since November 2024, without diarrhea, constipation, hematochezia, or hematemesis. Episodes last approximately 2 weeks once per month. Hot showers makes symptoms better which is classic for hyperemesis cannabinoid syndrome. He reports smoking marijuana throughout the day every day since he was a teenager. He has since cut back and is now smoking 1 bowl per day since March. Extensive conversation was had regarding importance of complete cessation to prevent recurrent symptoms. Patient informed symptoms may lead to kidney injury, dehydration, electrolyte imbalance. Plan for Zofran, however, patient advised the only true treatment is marijuana cessation. Patient educated on red flag symptoms including sharp burning pain in the epigastric area, hematemesis, or hematochezia. #Tobacco use disorder: 1 pack every 2 days since 1999. Starting 11/2024, patient has cut back and is now smoking on average 1 cigarette daily. Patient congratulated on effort. All questions have been answered to patient's satisfaction. Patient verbalized understanding of diagnosis and treatments explained. Advised to call sooner prior to next visit it any questions/concerns arise. Case discussed with collaborating physician Marisela Hargrove who reviewed the assessment and plan. Chart, medications, labs, vital signs reviewed. Dictation was accomplished with the use of [employer] voice recognition software, which is prone to medical misidentifications and grammatical errors. This are unintentional and the practitioner does try to identify and correct these, but some could still be present. Please do not hesitate to contact practitioner for clarification. 04/12/2025 Cannabis hyperemesis syndrome concurrent with and due to cannabis abuse (ICD-10 - F12.188) Patient is welcomed to the practice. He has never had a PCP. Medications, medical history, allergies, surgeries, hospitalizations, family history, and social history were reviewed. Problem list updated. Cardiopulmonary and abdominal exam unremarkable. Patient will follow-up in office. All patient questions answered at this time. #Health maintenance: Patient has never had a PCP. He declines dentist and eye doctor at this time. He declines flu shot, has received COVID vaccines in 2020, Tdap given in office today. Physical exam scheduled today, routine labs ordered to be reviewed. #Hyperemesis cannabinoid syndrome: Patient reports cyclic nausea, vomiting, and abdominal pain since November 2024, without diarrhea, constipation, hematochezia, or hematemesis. Episodes last approximately 2 weeks once per month. Hot showers makes symptoms better which is classic for hyperemesis cannabinoid syndrome. He reports smoking marijuana throughout the day every day since he was a teenager. He has since cut back and is now smoking 1 bowl per day since March. Extensive conversation was had regarding importance of complete cessation to prevent recurrent symptoms. Patient informed symptoms may lead to kidney injury, dehydration, electrolyte imbalance. Plan for Zofran, however, patient advised the only true treatment is marijuana cessation. Patient educated on red flag symptoms including sharp burning pain in the epigastric area, hematemesis, or hematochezia. #Tobacco use disorder: 1 pack every 2 days since 1999. Starting 11/2024, patient has cut back and is now smoking on average 1 cigarette daily. Patient congratulated on effort. All questions have been answered to patient's satisfaction. Patient verbalized understanding of diagnosis and treatments explained. Advised to call sooner prior to next visit it any questions/concerns arise. Case discussed with collaborating physician Marisela Hargrove who reviewed the assessment and plan. Chart, medications, labs, vital signs reviewed. Dictation was accomplished with the use of [employer] voice recognition software, which is prone to medical misidentifications and grammatical errors. This are unintentional and the practitioner does try to identify and correct these, but some could still be present. Please do not hesitate to contact practitioner for clarification. 05/23/2025 Annual physical exam (ICD-10 - Z00.00) Ross is a 40-year-old male with past medical history of tobacco use disorder and hyperemesis cannabinoid syndrome who presents for routine physical exam. He did not get his labs drawn. Physical exam unremarkable today. #Health maintenance: Educated patient on obtaining his labs, he states he will do so this week. Continues to decline dentist and eye doctor appointments. Declines flu vaccine, has received COVID vaccines in 2021, Tdap was administered 04/12/2025. PHQ-9 is 6. #Hyperemesis cannabinoid syndrome: Denies episode of nausea and vomiting since previous visit 04/12/2025. However, continues to smoke 1 bowl of marijuana/day. Educated patient that nausea/vomiting is likely to recur if he continues to smoke marijuana, he expresses understanding. #Tobacco use disorder: Patient significantly cut down his cigarette smoking from 1 pack every 2 days to 1 cigarette/day beginning 11/2024. Congratulated on effort. Will continue to monitor progress. Will follow-up in 2 weeks to review labs. Patient seen and examined. Comprehensive discussion was done on the following. 1. Nutrition: It is important to follow a healthy diet based on lots of vegetables and legumes and good fat. Avoid processed food and processed carbohydrates. Prepare your own meals. Read labels and avoid high fructose corn syrup, processed chemicals added to increase shelf life and preprepared meals. Avoid fast foods. Eat slowly and plan meals for a week. Try to count calories and be mindful of daily calorie intake. Get into the habit of keeping an eye on your weight by using an appropriate scale. Learn to log exercise and discussed fitness Apps like [employer]oked/[employer] which can help keep log off calories taken versus calories burned. Local food should be preferred. Discussed Dirty Dozen Versus Clean Fifteen. Discussed healthy supplements like fish oil, Tumeric, Curcumin, Melatonin, Resveratrol, Probiotics, Vitamin-D, Alpha-Lipoic acid, Vitamin-D and coconut oil. 2. It is important to exercise regularly. Is a good habit to walk at least 30 minutes a day. Gentle weightlifting with standard precautions to protect the back. Finding activity like cycling or hiking and get into the habit of engaging in it. Stretching before and after the exercises important. It is also important to contact me if there are any problems like shortness of breath, chest pain, back pain and joint or muscle pain associated with the exercise. 3. Discussed age appropriate screening guidelines. Colonoscopy needs to start at age 50 with stool for occult blood as appropriate. There is a new test that can test for genetic abnormalities in the stool sample, Cologuard. This would not replace a colonoscopy but could be used as a screening tool for patients who do not want a colonoscopy. We discussed the importance of early detection of colon cancer. 4. Discussed current PSA screening. PSA screening can be done in most patients between age 50 and 65. However early detection of prostate cancer needs to carefully be balanced with complications with treatment. These include incontinence, impotence etc. Each patient should decide if they would like to have this test. 5. Discussed safe driving and no use of smart phone while driving 6. Age-appropriate immunizations were discussed. A tetanus booster is needed every 10 years. Flu vaccine is recommended every year just before the start of the flu season. Shingles vaccine is recommended after age 50 but not all insurances cover it. Pneumonia vaccine is given after age 65 unless there are certain comorbidities for which it is started earlier. 7. Diagnostic labs were discussed. These could include/not limited to CBC CMP and lipids with fasting blood glucose and insulin levels. Vitamin D and hemoglobin A1c testing might be appropriate. All questions have been answered to patient's satisfaction. Patient verbalized understanding of diagnosis and treatments explained. Advised to call sooner prior to next visit it any questions/concerns arise. Case discussed with collaborating physician Marisela Hargrove who reviewed the assessment and plan. Chart, medications, labs, vital signs reviewed. Dictation was accomplished with the use of [employer] voice recognition software, which is prone to medical misidentifications and grammatical errors. This are unintentional and the practitioner does try to identify and correct these, but some could still be present. Please do not hesitate to contact practitioner for clarification. 05/23/2025 Cannabis hyperemesis syndrome concurrent with and due to cannabis abuse (ICD-10 - F12.188) Ross is a 40-year-old male with past medical history of tobacco use disorder and hyperemesis cannabinoid syndrome who presents for routine physical exam. He did not get his labs drawn. Physical exam unremarkable today. #Health maintenance: Educated patient on obtaining his labs, he states he will do so this week. Continues to decline dentist and eye doctor appointments. Declines flu vaccine, has received COVID vaccines in 2021, Tdap was administered 04/12/2025. PHQ-9 is 6. #Hyperemesis cannabinoid syndrome: Denies episode of nausea and vomiting since previous visit 04/12/2025. However, continues to smoke 1 bowl of marijuana/day. Educated patient that nausea/vomiting is likely to recur if he continues to smoke marijuana, he expresses understanding. #Tobacco use disorder: Patient significantly cut down his cigarette smoking from 1 pack every 2 days to 1 cigarette/day beginning 11/2024. Congratulated on effort. Will continue to monitor progress. Will follow-up in 2 weeks to review labs. Patient seen and examined. Comprehensive discussion was done on the following. 1. Nutrition: It is important to follow a healthy diet based on lots of vegetables and legumes and good fat. Avoid processed food and processed carbohydrates. Prepare your own meals. Read labels and avoid high fructose corn syrup, processed chemicals added to increase shelf life and preprepared meals. Avoid fast foods. Eat slowly and plan meals for a week. Try to count calories and be mindful of daily calorie intake. Get into the habit of keeping an eye on your weight by using an appropriate scale. Learn to log exercise and discussed fitness Apps like [employer]oked/[employer] which can help keep log off calories taken versus calories burned. Local food should be preferred. Discussed Dirty Dozen Versus Clean Fifteen. Discussed healthy supplements like fish oil, Tumeric, Curcumin, Melatonin, Resveratrol, Probiotics, Vitamin-D, Alpha-Lipoic acid, Vitamin-D and coconut oil. 2. It is important to exercise regularly. Is a good habit to walk at least 30 minutes a day. Gentle weightlifting with standard precautions to protect the back. Finding activity like cycling or hiking and get into the habit of engaging in it. Stretching before and after the exercises important. It is also important to contact me if there are any problems like shortness of breath, chest pain, back pain and joint or muscle pain associated with the exercise. 3. Discussed age appropriate screening guidelines. Colonoscopy needs to start at age 50 with stool for occult blood as appropriate. There is a new test that can test for genetic abnormalities in the stool sample, Cologuard. This would not replace a colonoscopy but could be used as a screening tool for patients who do not want a colonoscopy. We discussed the importance of early detection of colon cancer. 4. Discussed current PSA screening. PSA screening can be done in most patients between age 50 and 65. However early detection of prostate cancer needs to carefully be balanced with complications with treatment. These include incontinence, impotence etc. Each patient should decide if they would like to have this test. 5. Discussed safe driving and no use of smart phone while driving 6. Age-appropriate immunizations were discussed. A tetanus booster is needed every 10 years. Flu vaccine is recommended every year just before the start of the flu season. Shingles vaccine is recommended after age 50 but not all insurances cover it. Pneumonia vaccine is given after age 65 unless there are certain comorbidities for which it is started earlier. 7. Diagnostic labs were discussed. These could include/not limited to CBC CMP and lipids with fasting blood glucose and insulin levels. Vitamin D and hemoglobin A1c testing might be appropriate. All questions have been answered to patient's satisfaction. Patient verbalized understanding of diagnosis and treatments explained. Advised to call sooner prior to next visit it any questions/concerns arise. Case discussed with collaborating physician Marisela Hargrove who reviewed the assessment and plan. Chart, medications, labs, vital signs reviewed. Dictation was accomplished with the use of [employer] voice recognition software, which is prone to medical misidentifications and grammatical errors. This are unintentional and the practitioner does try to identify and correct these, but some could still be present. Please do not hesitate to contact practitioner for clarification. 05/23/2025 Tobacco use disorder (ICD-10 - F17.200) Ross is a 40-year-old male with past medical history of tobacco use disorder and hyperemesis cannabinoid syndrome who presents for routine physical exam. He did not get his labs drawn. Physical exam unremarkable today. #Health maintenance: Educated patient on obtaining his labs, he states he will do so this week. Continues to decline dentist and eye doctor appointments. Declines flu vaccine, has received COVID vaccines in 2021, Tdap was administered 04/12/2025. PHQ-9 is 6. #Hyperemesis cannabinoid syndrome: Denies episode of nausea and vomiting since previous visit 04/12/2025. However, continues to smoke 1 bowl of marijuana/day. Educated patient that nausea/vomiting is likely to recur if he continues to smoke marijuana, he expresses understanding. #Tobacco use disorder: Patient significantly cut down his cigarette smoking from 1 pack every 2 days to 1 cigarette/day beginning 11/2024. Congratulated on effort. Will continue to monitor progress. Will follow-up in 2 weeks to review labs. Patient seen and examined. Comprehensive discussion was done on the following. 1. Nutrition: It is important to follow a healthy diet based on lots of vegetables and legumes and good fat. Avoid processed food and processed carbohydrates. Prepare your own meals. Read labels and avoid high fructose corn syrup, processed chemicals added to increase shelf life and preprepared meals. Avoid fast foods. Eat slowly and plan meals for a week. Try to count calories and be mindful of daily calorie intake. Get into the habit of keeping an eye on your weight by using an appropriate scale. Learn to log exercise and discussed fitness Apps like nooked/[employer] which can help keep log off calories taken versus calories burned. Local food should be preferred. Discussed Dirty Dozen Versus Clean Fifteen. Discussed healthy supplements like fish oil, Tumeric, Curcumin, Melatonin, Resveratrol, Probiotics, Vitamin-D, Alpha-Lipoic acid, Vitamin-D and coconut oil. 2. It is important to exercise regularly. Is a good habit to walk at least 30 minutes a day. Gentle weightlifting with standard precautions to protect the back. Finding activity like cycling or hiking and get into the habit of engaging in it. Stretching before and after the exercises important. It is also important to contact me if there are any problems like shortness of breath, chest pain, back pain and joint or muscle pain associated with the exercise. 3. Discussed age appropriate screening guidelines. Colonoscopy needs to start at age 50 with stool for occult blood as appropriate. There is a new test that can test for genetic abnormalities in the stool sample, Cologuard. This would not replace a colonoscopy but could be used as a screening tool for patients who do not want a colonoscopy. We discussed the importance of early detection of colon cancer. 4. Discussed current PSA screening. PSA screening can be done in most patients between age 50 and 65. However early detection of prostate cancer needs to carefully be balanced with complications with treatment. These include incontinence, impotence etc. Each patient should decide if they would like to have this test. 5. Discussed safe driving and no use of smart phone while driving 6. Age-appropriate immunizations were discussed. A tetanus booster is needed every 10 years. Flu vaccine is recommended every year just before the start of the flu season. Shingles vaccine is recommended after age 50 but not all insurances cover it. Pneumonia vaccine is given after age 65 unless there are certain comorbidities for which it is started earlier. 7. Diagnostic labs were discussed. These could include/not limited to CBC CMP and lipids with fasting blood glucose and insulin levels. Vitamin D and hemoglobin A1c testing might be appropriate. All questions have been answered to patient's satisfaction. Patient verbalized understanding of diagnosis and treatments explained. Advised to call sooner prior to next visit it any questions/concerns arise. Case discussed with collaborating physician Marisela Hargrove who reviewed the assessment and plan. Chart, medications, labs, vital signs reviewed. Dictation was accomplished with the use of [employer] voice recognition software, which is prone to medical misidentifications and grammatical errors. This are unintentional and the practitioner does try to identify and correct these, but some could still be present. Please do not hesitate to contact practitioner for clarification. 04/12/2025 Cyclical vomiting with nausea (ICD-10 - R11.15) Patient is welcomed to the practice. He has never had a PCP. Medications, medical history, allergies, surgeries, hospitalizations, family history, and social history were reviewed. Problem list updated. Cardiopulmonary and abdominal exam unremarkable. Patient will follow-up in office. All patient questions answered at this time. #Health maintenance: Patient has never had a PCP. He declines dentist and eye doctor at this time. He declines flu shot, has received COVID vaccines in 2019, Tdap given in office today. Physical exam scheduled today, routine labs ordered to be reviewed. #Hyperemesis cannabinoid syndrome: Patient reports cyclic nausea, vomiting, and abdominal pain since November 2024, without diarrhea, constipation, hematochezia, or hematemesis. Episodes last approximately 2 weeks once per month. Hot showers makes symptoms better which is classic for hyperemesis cannabinoid syndrome. He reports smoking marijuana throughout the day every day since he was a teenager. He has since cut back and is now smoking 1 bowl per day since March. Extensive conversation was had regarding importance of complete cessation to prevent recurrent symptoms. Patient informed symptoms may lead to kidney injury, dehydration, electrolyte imbalance. Plan for Zofran, however, patient advised the only true treatment is marijuana cessation. Patient educated on red flag symptoms including sharp burning pain in the epigastric area, hematemesis, or hematochezia. #Tobacco use disorder: 1 pack every 2 days since 1999. Starting 11/2024, patient has cut back and is now smoking on average 1 cigarette daily. Patient congratulated on effort. All questions have been answered to patient's satisfaction. Patient verbalized understanding of diagnosis and treatments explained. Advised to call sooner prior to next visit it any questions/concerns arise. Case discussed with collaborating physician Marisela Hargrove who reviewed the assessment and plan. Chart, medications, labs, vital signs reviewed. Dictation was accomplished with the use of [employer] voice recognition software, which is prone to medical misidentifications and grammatical errors. This are unintentional and the practitioner does try to identify and correct these, but some could still be present. Please do not hesitate to contact practitioner for clarification. 05/23/2025 Encounter for examination of blood pressure without abnormal findings (ICD-10 - Z01.30) Ross is a 40-year-old male with past medical history of tobacco use disorder and hyperemesis cannabinoid syndrome who presents for routine physical exam. He did not get his labs drawn. Physical exam unremarkable today. #Health maintenance: Educated patient on obtaining his labs, he states he will do so this week. Continues to decline dentist and eye doctor appointments. Declines flu vaccine, has received COVID vaccines in 2021, Tdap was administered 04/12/2025. PHQ-9 is 6. #Hyperemesis cannabinoid syndrome: Denies episode of nausea and vomiting since previous visit 04/12/2025. However, continues to smoke 1 bowl of marijuana/day. Educated patient that nausea/vomiting is likely to recur if he continues to smoke marijuana, he expresses understanding. #Tobacco use disorder: Patient significantly cut down his cigarette smoking from 1 pack every 2 days to 1 cigarette/day beginning 11/2024. Congratulated on effort. Will continue to monitor progress. Will follow-up in 2 weeks to review labs. Patient seen and examined. Comprehensive discussion was done on the following. 1. Nutrition: It is important to follow a healthy diet based on lots of vegetables and legumes and good fat. Avoid processed food and processed carbohydrates. Prepare your own meals. Read labels and avoid high fructose corn syrup, processed chemicals added to increase shelf life and preprepared meals. Avoid fast foods. Eat slowly and plan meals for a week. Try to count calories and be mindful of daily calorie intake. Get into the habit of keeping an eye on your weight by using an appropriate scale. Learn to log exercise and discussed fitness Apps like [employer] which can help keep log off calories taken versus calories burned. Local food should be preferred. Discussed Dirty Dozen Versus Clean Fifteen. Discussed healthy supplements like fish oil, Tumeric, Curcumin, Melatonin, Resveratrol, Probiotics, Vitamin-D, Alpha-Lipoic acid, Vitamin-D and coconut oil. 2. It is important to exercise regularly. Is a good habit to walk at least 30 minutes a day. Gentle weightlifting with standard precautions to protect the back. Finding activity like cycling or hiking and get into the habit of engaging in it. Stretching before and after the exercises important. It is also important to contact me if there are any problems like shortness of breath, chest pain, back pain and joint or muscle pain associated with the exercise. 3. Discussed age appropriate screening guidelines. Colonoscopy needs to start at age 50 with stool for occult blood as appropriate. There is a new test that can test for genetic abnormalities in the stool sample, Cologuard. This would not replace a colonoscopy but could be used as a screening tool for patients who do not want a colonoscopy. We discussed the importance of early detection of colon cancer. 4. Discussed current PSA screening. PSA screening can be done in most patients between age 50 and 65. However early detection of prostate cancer needs to carefully be balanced with complications with treatment. These include incontinence, impotence etc. Each patient should decide if they would like to have this test. 5. Discussed safe driving and no use of smart phone while driving 6. Age-appropriate immunizations were discussed. A tetanus booster is needed every 10 years. Flu vaccine is recommended every year just before the start of the flu season. Shingles vaccine is recommended after age 50 but not all insurances cover it. Pneumonia vaccine is given after age 65 unless there are certain comorbidities for which it is started earlier. 7. Diagnostic labs were discussed. These could include/not limited to CBC CMP and lipids with fasting blood glucose and insulin levels. Vitamin D and hemoglobin A1c testing might be appropriate. All questions have been answered to patient's satisfaction. Patient verbalized understanding of diagnosis and treatments explained. Advised to call sooner prior to next visit it any questions/concerns arise. Case discussed with collaborating physician Marisela Hargrove who reviewed the assessment and plan. Chart, medications, labs, vital signs reviewed. Dictation was accomplished with the use of [employer] voice recognition software, which is prone to medical misidentifications and grammatical errors. This are unintentional and the practitioner does try to identify and correct these, but some could still be present. Please do not hesitate to contact practitioner for clarification. 04/12/2025 Encounter for immunization (ICD-10 - Z23) Patient is welcomed to the practice. He has never had a PCP. Medications, medical history, allergies, surgeries, hospitalizations, family history, and social history were reviewed. Problem list updated. Cardiopulmonary and abdominal exam unremarkable. Patient will follow-up in office. All patient questions answered at this time. #Health maintenance: Patient has never had a PCP. He declines dentist and eye doctor at this time. He declines flu shot, has received COVID vaccines in 2019, Tdap given in office today. Physical exam scheduled today, routine labs ordered to be reviewed. #Hyperemesis cannabinoid syndrome: Patient reports cyclic nausea, vomiting, and abdominal pain since November 2024, without diarrhea, constipation, hematochezia, or hematemesis. Episodes last approximately 2 weeks once per month. Hot showers makes symptoms better which is classic for hyperemesis cannabinoid syndrome. He reports smoking marijuana throughout the day every day since he was a teenager. He has since cut back and is now smoking 1 bowl per day since March. Extensive conversation was had regarding importance of complete cessation to prevent recurrent symptoms. Patient informed symptoms may lead to kidney injury, dehydration, electrolyte imbalance. Plan for Zofran, however, patient advised the only true treatment is marijuana cessation. Patient educated on red flag symptoms including sharp burning pain in the epigastric area, hematemesis, or hematochezia. #Tobacco use disorder: 1 pack every 2 days since 1999. Starting 11/2024, patient has cut back and is now smoking on average 1 cigarette daily. Patient congratulated on effort. All questions have been answered to patient's satisfaction. Patient verbalized understanding of diagnosis and treatments explained. Advised to call sooner prior to next visit it any questions/concerns arise. Case discussed with collaborating physician Marisela Hargrove who reviewed the assessment and plan. Chart, medications, labs, vital signs reviewed. Dictation was accomplished with the use of [employer] voice recognition software, which is prone to medical misidentifications and grammatical errors. This are unintentional and the practitioner does try to identify and correct these, but some could still be present. Please do not hesitate to contact practitioner for clarification. 04/12/2025 Encounter for examination of blood pressure without abnormal findings (ICD-10 - Z01.30) Patient is welcomed to the practice. He has never had a PCP. Medications, medical history, allergies, surgeries, hospitalizations, family history, and social history were reviewed. Problem list updated. Cardiopulmonary and abdominal exam unremarkable. Patient will follow-up in office. All patient questions answered at this time. #Health maintenance: Patient has never had a PCP. He declines dentist and eye doctor at this time. He declines flu shot, has received COVID vaccines in 2019, Tdap given in office today. Physical exam scheduled today, routine labs ordered to be reviewed. #Hyperemesis cannabinoid syndrome: Patient reports cyclic nausea, vomiting, and abdominal pain since November 2024, without diarrhea, constipation, hematochezia, or hematemesis. Episodes last approximately 2 weeks once per month. Hot showers makes symptoms better which is classic for hyperemesis cannabinoid syndrome. He reports smoking marijuana throughout the day every day since he was a teenager. He has since cut back and is now smoking 1 bowl per day since March. Extensive conversation was had regarding importance of complete cessation to prevent recurrent symptoms. Patient informed symptoms may lead to kidney injury, dehydration, electrolyte imbalance. Plan for Zofran, however, patient advised the only true treatment is marijuana cessation. Patient educated on red flag symptoms including sharp burning pain in the epigastric area, hematemesis, or hematochezia. #Tobacco use disorder: 1 pack every 2 days since 1999. Starting 11/2024, patient has cut back and is now smoking on average 1 cigarette daily. Patient congratulated on effort. All questions have been answered to patient's satisfaction. Patient verbalized understanding of diagnosis and treatments explained. Advised to call sooner prior to next visit it any questions/concerns arise. Case discussed with collaborating physician Marisela Hargrove who reviewed the assessment and plan. Chart, medications, labs, vital signs reviewed. Dictation was accomplished with the use of [employer] voice recognition software, which is prone to medical misidentifications and grammatical errors. This are unintentional and the practitioner does try to identify and correct these, but some could still be present. Please do not hesitate to contact practitioner for clarification. Plan Of Treatment Pending Test Test Name Order Date VITAMIN B12 04/12/2025 LIPID PANEL, STANDARD 04/12/2025 COMPREHENSIVE METABOLIC PANEL 04/12/2025 CBC (INCLUDES DIFF/PLT) 04/12/2025 URINALYSIS, COMPLETE 04/12/2025 HEMOGLOBIN A1c 04/12/2025 TSH 04/12/2025 VITAMIN D,25-OH,TOTAL,IA 04/12/2025 Insurance Providers Payer Name Payer Address Payer Phone Subscriber Number Group Number Insured Name Patient Relationship to Insured Coverage Start Date Coverage End Date [employer] [address] [place] [address] [id number] ROSS BRANDON Self - patient is the insured Medical (General) History Medical History History ICD Code weight gain Tobacco use disorder F17.200 hyperemesis cannabinoid syndrome Hospitalization History Reason Date(Month/Year) Vomiting - unknown cause, several ER tri ps
[2025-08-15 22:19] LABS: UACC Culture Trigger YES
[2025-08-15] MEDS: Potassium Chloride ER 20 MEQ TAB.ER.PRT 40 MEQ PO (23:58)
[2025-08-16 00:23] VITALS: BP 116/82; PULSE 61; RESP 12; TEMP 37.1; O2SAT 96
== END 2025-08-16 00:29 | disposition home or self-care (01) ==
PROVIDERS: Registered Nurse Emergency; Emergency Provider Emergency Medicine
DX: R10.A1 Flank pain, right side (principal); R31.9 Hematuria, unspecified; R11.2 Nausea with vomiting, unspecified; E87.6 Hypokalemia; Z03.818 Encounter for observation for suspected exposure to other biological agents ruled out
CPT/HCPCS: 80053; 81001; 83735; 85025; 87086; 87637; 96361; 96374; 99284; J2405

== ENCOUNTER 2025-08-30 17:05 | Emergency (ER) | payer OTHER, SELFPAY ==
[2025-08-30 17:07] VITALS: BP 120/77; PULSE 72; RESP 22; TEMP 36.8; O2SAT 97; BMI 23.0
--- NOTE | 2025-08-30 17:11 | ED_ITS ---
HPI - Abdominal Pain General Chief Complaint: Nausea/Vomiting/Diarrhea Stated Complaint: Stomach Pain Time Seen by Provider: 08/30/25 17:28 Source: patient, family (Significant other at bedside), RN notes reviewed and old records reviewed Mode of arrival: ambulatory Limitations: no limitations History of Present Illness ED Provider: AYAH Carrera HPI narrative: 40-year-old male without significant medical history presents to the ED due to nausea, vomiting, diffuse abdominal pain, and intermittent chills that began at 8 this morning when he woke up from sleep. Patients significant other states he ate dinner last night as normal, no new restaurants or foods. Patient had bowel movement yesterday that was normal in consistency and caliber for him and is passing flatus. Patient significant other states that he has had a history of cyclical vomiting, patient states that this pain feels similar. Patient reports he last smoked marijuana yesterday. Denies sick contacts, recent illness, recent travel, chest pain, shortness of breath, diarrhea, urinary symptoms Related Data Previous Rx's ?Medication ?Instructions ?Recorded ketorolac 10 mg tablet 10 mg PO Q6H PRN pain #20 ta bs 08/16/25 ondansetron 4 mg disintegrating 4 mg PO Q8H PRN nausea and 08/16/25 tablet vomiting #10 tabs tamsulosin 0.4 mg capsule (Flomax) 0.4 mg PO DAILY #7 caps 08/16/25 ondansetron 4 mg disintegrating 4 mg PO Q8H PRN nausea and 08/30/25 tablet vomiting #10 tabs Allergies Allergy/AdvReac Type Severity Reaction Status Date / Time aspirin Allergy Palpitation Verified 08/30/25 17:12 s Review of Systems Review of Systems Yes all other systems are reviewed and are negative PMFSH Past Medical History Attestation statement: The following information was validated with the patient. Source: old records reviewed, obtained from family (Significant other at bedside) and nursing notes reviewed Social History Social History Alcohol intake: current Alcohol intake frequency: holidays/special occasions only Substance Use Type: Marijuana Physical Exam ED Vital Signs: Vital Signs - 24 hr 08/30/25 17:07 08/30/25 19:46 08/30/25 21:57 Temperature 98.2 F 98.8 F 99.2 F Pulse Rate 72 74 66 Respiratory Rate 22 H 18 18 Blood Pressure 120/77 111/78 120/83 Pulse Oximetry 97 99 99 Oxygen Delivery Method Room Air Room Air Room Air 08/30/25 22:07 Temperature 100.6 F H Pulse Rate Respiratory Rate Blood Pressure Pulse Oximetry Oxygen Delivery Method BMI result Body Mass Index 23.0 GENERAL APPEARANCE: ?AxOx4, uncomfortable appearing, tremulous, non toxic appearing. HEENT: ?NC, AT. MMM. EOMI, clear conjunctiva, oropharynx clear. NECK: ?Supple without lymphadenopathy.? No stiffness or restricted ROM. HEART:? Normal rate and regular rhythm, normal S1/S2, no m/r/g LUNGS:? CTAB, moving air well. No crackles or wheezes are heard. ABDOMEN: Soft with guarding as I go to palpate, diffusely tender to palpation throughout all 4 quadrants of the abdomen. BACK: No CVAT, no obvious deformity. EXTREMITIES: ?Without cyanosis, clubbing or edema. NEUROLOGICAL: ?Grossly nonfocal. Alert and oriented, moving all 4 extremities. Observed to ambulate with normal gait. Skin: ?Warm and dry without any rash. Course Course Course Narrative: This is a Rapid Medical Exam performed in triage by Chen Jackson PA-C. Full HPI, ROS and PE to be performed by primary ED provider. 40 yo M presenting to the ED c/o diffuse abdominal pain, N/V x this AM. Denies fever, chills, urinary symptoms. PE: Appears uncomfortable, walking hunched over Plan: labs, UA Medical Decision Making Medical Decision Making MDM Narrative: 40-year-old male without significant medical history presents to the ED due to nausea, vomiting, diffuse abdominal pain, and intermittent chills that began at 8 this morning when he woke up from sleep. Patient with history of cyclical vomiting, states that this pain feels similar. Last bowel movement was yesterday normal in consistency and caliber for him, passing flatus rectally. Patient last smoked marijuana yesterday. No new restaurants or foods, no recent travel or sick contacts, no urinary symptoms, no testicular pain. VS on initial observation-BP 120/77, pulse rate of 72, respiratory rate of 22, afebrile with oral temp of 98.2?, O2 saturation 97% on room air. On physical exam patient is very uncomfortable appearing, and tremulous. Lungs clear to auscultation bilaterally, cardiac exam with normal rate and rhythm without murmurs/rubs/gallops, abdomen is soft however there is guarding present as I attempt to palpate the abdomen, no rigidity, no distention, diffuse tenderness throughout all 4 quadrants, patient without CVAT Plan: Labs, UA, - Patient medicated with 1L IV fluids, 1.25mg droperidol, 25mg IV benadryl, for suspected cyclical vomiting. Labs without leukocytosis/leukopenia, no evidence of anemia, no electrolyte abnormalities, elevated total bilirubin at 1.1, direct bilirubin WNL, LFTs WNL, lipase WNL at 15. UA reveals 1+ urine protein, 3-5 urine RBCs, 0-2 squamous epithelial cells, without urine bacteria. Differential Diagnosis Differential Diagnoses: The differential diagnosis associated with the presentation includes Gastroenteritis Viral illness Nephrolithiasis Cyclical vomiting Admission/Observation Consideration of admission/observation: Escalation of care including admission/observation considered Lab Data MDM Lab Attestation statement: I reviewed the patient's lab results. 08/30/25 17:31 08/30/25 17:31 Labs: Lab Results 08/30/25 08/30/25 08/30/25 Range/Units 17:31 18:17 19:45 WBC 9.6 (4.8-10.8) X10*3/uL RBC 4.93 (4.60-5.80) X10*6/uL Hgb 15.4 (14.0-18.0) g/dl Hct 43.4 (42.0-52.0) % MCV 88.0 (80.0-98.0) fL MCH 31.2 (27.0-33.0) pg MCHC 35.5 (31.0-36.0) g/dl RDW 12.3 (11.0-16.0) % Plt Count 238 (160-400) X10*3/uL MPV 9.4 (9.4-12.4) fL Immature Gran % (Auto) 0.3 (0.0-0.4) % Neut % (Auto) 82.7 H (45-73) % Lymph % (Auto) 13.1 L (20-40) % Summers % (Auto) 3.6 (2-11) % Eos % (Auto) 0.0 (0-4) % Baso % (Auto) 0.3 (0-2) % Lymph # (Auto) 1.3 (1.2-4.9) X10*3/uL Summers # (Auto) 0.3 (0.1-1.2) X10*3/uL Eos # (Auto) 0.0 (0.0-0.4) X10*3/uL Baso # (Auto) 0.0 (0.0-0.2) X10*3/uL Abs Immat Gran (auto) 0.03 (0.00-0.03) X10*3/uL Absolute Neuts (auto) 7.9 (2.0-8.3) x10*3/uL Absolute Nucleated RBC 0.000 (0.0-0.012) X10*3/uL Nucleated RBC % (auto) 0.0 (0.0-0.2) /100WBC Sodium 141 (135-145) mmol/L Potassium 4.0 D (3.3-5.1) mmol/L Chloride 109 H (96-108) mmol/L Carbon Dioxide 23 (22-29) mmol/L Anion Gap 13 (12-20) BUN 12 (9-16) mg/dL Creatinine 0.83 (0.5-1.4) mg/dL Estim Creat Clear Calc 112.1 Estimated GFR > 60 Random Glucose 120 H (60-115) mg/dL Calcium 9.5 (8.4-10.2) mg/dL Magnesium 1.9 (1.6-2.6) mg/dL Total Bilirubin 1.1 H (0.0-1.0) mg/dL Direct Bilirubin 0.4 (0.0-0.5) mg/dL AST 21 (5-37) U/L ALT 22 (0-40) U/L Alkaline Phosphatase 73 (39-117) U/L Total Protein 7.3 (6.5-8.0) g/dL Albumin 4.8 (3.5-5.0) g/dL Lipase 15 (8-78) U/L Urine Color Yellow Urine Appearance Clear Urine pH >= 9.0 (5.0-9.0) Ur Specific [place] 1.025 (1.005-1.025) Urine Protein 30 (1+) H (Neg-Trace) mg/dL Urine Glucose (UA) Negative (Negative) mg/dL Urine Ketones Negative (Negative) mg/dL Urine Blood Negative (Negative) Urine Nitrite Negative (Negative) Ur Leukocyte Esterase Negative (Negative) Urine RBC 3-5 H (0-2) /HPF Urine WBC 0-5 (0-5) /HPF Ur Squamous Epith Cells 0-2 (0-2) /HPF Urine Bacteria None Seen (None Seen) Hyaline Casts 0-2 (0-2) /LPF Urine Opiates Screen Not Detected (Not Detect) Ur Buprenorphine Scrn Not Detected (Not Detect) ng/mL Ur Oxycodone Screen Not Detected (Not Detect) ng/mL Urine Methadone Screen Not Detected (Not Detect) ng/mL Urine Fentanyl Screen Not Detected (Not Detect) Ur Barbiturates Screen Not Detected (Not Detect) Ur Phencyclidine Scrn Not Detected (Not Detect) Ur Amphetamines Screen Not Detected (Not Detect) U Benzodiazepines Scrn Not Detected (Not Detect) Urine Cocaine Screen POSITIVE H (Not Detect) U Marijuana (THC) Screen POSITIVE H (Not Detect) Influenza Type A (PCR) NEGATIVE (Negative) Influenza Type B (PCR) NEGATIVE (Negative) RSV RNA Qual (PCR) NEGATIVE (Negative) SARS-CoV-2 RNA (RT-PCR) NEGATIVE (Negative) Independent Historian Clinical information obtained from an independent historian. History obtained from or confirmed by: Spouse (Significant other at bedside) External Record Review External record reviewed: Inpatient record, Office record and Outpatient record Chronic Conditions Patient?s care impacted by: Other (No known medical history) Medications Administered Discontinued Medications Generic Name Dose Route Start Last Admin Trade Name Freq PRN Reason Stop Dose Admin Diphenhydramine HCl 25 mg 08/30/25 18:54 08/30/25 20:36 Diphenhydramine Hcl 50 Mg/Ml Vial IVPUSH 08/30/25 18:55 25 mg ONCE ONE Administration Droperidol 1.25 mg 08/30/25 18:51 08/30/25 20:36 Droperidol 5 Mg/2 Ml Vial IVPUSH 08/30/25 18:52 1.25 mg ONCE ONE Administration Droperidol 0.625 mg 08/30/25 22:07 08/30/25 22:17 Droperidol 5 Mg/2 Ml Vial IVPUSH 08/30/25 22:08 0.625 mg ONCE ONE Administration Lactated Ringer's 1,000 mls @ 999 mls/hr 08/30/25 18:51 08/30/25 21:43 Lr IV 08/30/25 19:51 Infused .Q1H1M ONE Infusion Acetaminophen 1,000 mg in 100 mls @ 400 mls/hr 08/30/25 22:07 08/30/25 22:17 Ofirmev IV 08/30/25 22:21 400 mls/hr ONCE ONE Administration Ketorolac Tromethamine 15 mg 08/30/25 22:07 08/30/25 22:17 Ketorolac Tromethamine 15 Mg/Ml Vial IVPUSH 08/30/25 22:08 15 mg ONCE ONE Administration Discharge Plan Discharge Clinical Impression: Fever, Cannabinoid hyperemesis syndrome Patient Disposition: Home, Self-Care Instructions: Fever in Adults (ED), Cannabis Use Disorder (ED), Viral Syndrome (ED) Additional Instructions: You were treated for cyclic vomiting secondary to your marijuana use. See home care instructions. If you develop symptoms at home, taking a hot shower can alleviate symptoms. The cessation of marijuana use is the only way to completely alleviate your symptoms. Use the Zofran as needed for nausea vomiting. All of your screening labs were normal, the viral panel was negative. You could have another virus causing symptoms as well, given you developed a fever while in the emergency room. See home care instructions. Follow up with your primary care as needed. Prescriptions: New ondansetron 4 mg tablet,disintegrating 4 mg PO Q8H PRN (Reason: nausea and vomiting) Qty: 10 0RF No Action ondansetron 4 mg tablet,disintegrating 4 mg PO Q8H PRN (Reason: nausea and vomiting) Qty: 10 0RF ketorolac 10 mg tablet 10 mg PO Q6H PRN (Reason: pain) Qty: 20 0RF Rx Instructions: maximum total duration of 5 days from all oral, intranasal, or parenteral formulations. The patient received IV Toradol here in the emergency room tamsulosin [Flomax] 0.4 mg capsule 0.4 mg PO DAILY Qty: 7 0RF Stand Alone Forms: Work/School Release Print Language: Albanian
[2025-08-30 17:36] LABS: MANUAL DIFF FLAG NO
--- NOTE | 2025-08-30 17:36 | PC.NURSE ---
Addendum entered by Edilma Jc RN 08/30/25 17:38: acute N/V that started this morning. Patient reports last bowel movement was yesterday. Abdomen soft and tender upon palpation with guarding. Patient denies any hematemesis. VSS. Original Note: Patient presents to the ED with acute N/
[2025-08-30 17:37] LABS: Hematocrit 43.4 % (42.0-52.0); Hemoglobin 15.4 g/dl (14.0-18.0); Imm Gran Abs Auto 0.03 X10*3/uL (0.00-0.03); Imm Gran Pct Auto 0.3 % (0.0-0.4); Lymphocytes Absolute Auto 1.3 X10*3/uL (1.2-4.9); Mean Corpuscular HGB Conc 35.5 g/dl (31.0-36.0); Mean Corpuscular Hemoglobin 31.2 pg (27.0-33.0); Mean Corpuscular Volume 88.0 fL (80.0-98.0); NRBC Abs Auto 0.000 X10*3/uL (0.0-0.012); NRBC Pct Auto 0.0 /100WBC (0.0-0.2); Platelet Count 238 X10*3/uL (160-400); Red Blood Count 4.93 X10*6/uL (4.60-5.80); White Blood Count 9.6 X10*3/uL (4.8-10.8)
[2025-08-30 17:51] LABS: Alanine Aminotransferase 22 U/L (0-40); Albumin Level 4.8 g/dL (3.5-5.0); Alkaline Phosphatase 73 U/L (39-117); Anion Gap 13 (12-20); Aspartate Amino Transferase 21 U/L (5-37); Blood Urea Nitrogen 12 mg/dL (9-16); Calcium 9.5 mg/dL (8.4-10.2); Carbon Dioxide 23 mmol/L (22-29); Chloride 109 mmol/L (96-108); Creatinine Clr Calc Pharmacy 112.1; Estimated Glomerular Filt Rate > 60; Lipase 15 U/L (8-78); Magnesium 1.9 mg/dL (1.6-2.6); Potassium 4.0 mmol/L (3.3-5.1); Sodium 141 mmol/L (135-145); Total Protein 7.3 g/dL (6.5-8.0)
[2025-08-30 18:22] LABS: Appearance Urine Clear; Glucose Urine UA Negative (Negative); PH >= 9.0 (5.0-9.0); Specific Gravity - Urine 1.025 (1.005-1.025); UMIC TRIGGER UACC YES
[2025-08-30 19:46] VITALS: BP 111/78; PULSE 74; RESP 18; TEMP 37.1; O2SAT 99
[2025-08-30 20:29] LABS: Resp Syncy Virus RNA Qual PCR NEGATIVE (Negative); SARS COV2 PCR INHOUSE NEGATIVE (Negative)
[2025-08-30] MEDS: Lactated Ringers 1,000 ML 999 ML IV (20:42)
[2025-08-30 21:47] LABS: Cannabinoid Screen Urine POSITIVE (Not Detect)
[2025-08-30 21:57] VITALS: BP 120/83; PULSE 66; RESP 18; TEMP 37.3; O2SAT 99
[2025-08-30 22:07] VITALS: TEMP 38.1
[2025-08-30 23:21] VITALS: BP 124/82; PULSE 61; RESP 16; TEMP 38.2; O2SAT 98
[2025-08-30 23:36] VITALS: BP 124/82; PULSE 61; RESP 16; TEMP 38.2; O2SAT 98
== END 2025-08-30 23:47 | disposition home or self-care (01) ==
PROVIDERS: Physician Assistant; Physician Assistant Medical; Emergency Provider Student in an Organized Health Care Education/Training Program
DX: R11.16 Cannabis hyperemesis syndrome (principal); F12.90 Cannabis use, unspecified, uncomplicated; R50.9 Fever, unspecified; Z88.6 Allergy status to analgesic agent
CPT/HCPCS: 36415; 80048; 80076; 80307; 81001; 83690; 83735; 85025; 87637; 96361; 96374; 96375; 96376; 99285; J0131; J1200; J1790; J1885; J7120